=== PATIENT | male | born 1940 | race Caucasian/White ===

== ENCOUNTER 2022-04-12 16:25 | Emergency (ER) | payer MEDICARE, OTHER ==
[~2022-04-12] VITALS: Ht 172.7 cm; Wt 88.6 kg
[2022-04-12 16:50] VITALS: BP 159/65; TEMP 97.8
[2022-04-12 17:37] VITALS: PULSE 60
== END 2022-04-12 17:37 | disposition home or self-care (01) ==
LOC: COL.ER 16:25
DX: H61.21 Impacted cerumen, right ear (principal)